=== PATIENT | male | born 1975 | race Caucasian/White ===

== ENCOUNTER 2025-01-07 13:09 | Emergency (ER) | payer OTHER, MEDICARE, SELFPAY ==
[2025-01-07 13:19] VITALS: BP 137/84
--- NOTE | 2025-01-07 13:27 | ED.GENMED ---
History of Present Illness
General
Chief Complaint: Crisis Evaluation
Time Seen by Provider: 01/07/25 13:27
History of Present Illness
History of Present Illness:
TIME OF INITIAL ENCOUNTER: 1:30 PM
HPI: The patient cannot clearly tell me why he is here. However, he states that he had an upsetting phone call with his mother and then go to [facility] somehow got involved. He states that somebody from [facility] brought him here. He has no suicidal thoughts. The patient perseverates on talking about psychedelics and admits to polysubstance use. He states he has social anxiety. He has been having rather severe depression and anxiety. He
denies any suicidal thoughts. He states that he has had several college courses and has an associates degree related to computer science. 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.
I also reviewed the 302 petition. He apparently missed his transitional outpatient program meeting today. There was concern of him taking excessive benzos yesterday. The patient did not initially tell me this. Regardless he denies any suicidal
thoughts or suicide attempts. He does have severe anxiety. [facility] petition for the 302.
EXAM:
GENERAL: Well appearing in no distress
HEENT: Moist oral mucosa, pupils are normal size appropriately reactive
PULMONARY: No respiratory distress
ABDOMEN: Elevated BMI
NEUROLOGIC: Excellent strength all extremities, no coordination deficits, at times the patient has some slurred speech
PSYCHIATRIC: Tangential thoughts, somewhat pressured speech at times, fair insight and judgment but cannot clearly tell me why he is here today
EXTREMITIES: Nontender, no edema, moves all extremities equally
SKIN: No rash, no lesions
NUMBER AND COMPLEXITY OF PROBLEMS ADDRESSED AT THE ENCOUNTER
� Chronic conditions affecting care: Anxiety/depression, questionable bipolar affective disorder, polysubstance use
� Acute Exacerbation and/or Progression of Chronic Illness: This is an acute problem
� Differential Diagnosis includes: Exacerbation of psychiatric illness, polysubstance abuse, severe anxiety/depression
AMOUNT AND/OR COMPLEXITY OF DATA TO BE REVIEWED AND ANALYZED
� I performed an independent evaluation of and my interpretation is:
EKG:
CT:
X-rays:
Laboratory Studies: CBC unremarkable, chemistries unremarkable, UDS positive for benzos only, alcohol detected
Other:
� Review of other/old records: I reviewed records. Only other visit here was when patient was diagnosed with a nasal contusion.
� Clinical information was obtained by an independent historian: I reviewed the 302
� Prescriptions/Medications Considered but not given:
� Further testing considered but not performed:
RISK OF COMPLICATIONS AND/OR MORBIDITY OR MORTALITY OF PATIENT MANAGEMENT
� Social determinants of health affecting care: As summarized above
� Discussion with other providers: 1:45 PM I spoke to Ani and asked for crisis evaluation
� Escalation of care including admission/observation vs risk of discharge considered:
ANY OTHER UPDATES:
3:20 PM: I spoke to Ani again. She tells me that the 302 petition was denied. The patient not appear to be any threat to himself or others. Ani gave referrals for other outpatient resources.
Past History
Past History
ED Past Medical History: None
ED Past Surgical History: None
Phy Exam
Physical Exam
Physical Exam:
See HPI
Course
Orders/Labs/Results
Orders:
Orders
01/07/25 13:45
Crisis Consult Urgent
Reason for Consult: behavioral health eval
01/07/25 14:05
Alcohol Urgent
Complete Blood Count/With Diff Urgent
Comprehensive Metabolic Panel Urgent
Fentanyl, Urine Urgent
Urine Drug Abuse Screen Urgent
Date Specimen was Collected: 01/07/25
Time Specimen was Collected: 13:59
Abnormal Lab Results
01/07/25
14:05
RBC 4.26 L 10^6/uL
(4.70-6.10)
Hgb 12.8 L g/dL
(13.0-18.0)
Hct 37.8 L %
(39.0-52.0)
BUN 21 H mg/dl
(9-20)
Glucose 110 H mg/dl
(70-99)
Alkaline Phosphatase 131 H U/L
(38-126)
U Benzodiazepines Scrn Positive H
(Negative)
01/07/25 14:05
01/07/25 14:05
Vital Signs
Initial and Last Documented VS:
Initial Vital Signs
Temp Pulse Resp BP Pulse Ox
36.8 C 77 18 137/84 96
01/07/25 13:19 01/07/25 13:19 01/07/25 13:19 01/07/25 13:19 01/07/25 13:19
Last Documented Vital Signs
Temp Pulse Resp BP Pulse Ox
36.8 C 77 18 137/84 96
01/07/25 13:19 01/07/25 13:19 01/07/25 13:19 01/07/25 13:19 01/07/25 13:19
*Critical Care Note
Total Time (30-74mins, 75-104mins- exclusive of procedures): Not Applicable
ED Attending Note
-
Portions of this chart may have been created with voice recognition software.� Occasional wrong word or��sound alike� substitutions may have occurred due to the inherent limitations of voice recognition software.
Discharge Plan
Departure
Patient Disposition: Home (Routine Discharge)
Date of Disposition: 01/07/25
Time of Disposition: 15:20
Patient with high blood pressure during this ER visit?: Yes
Discharge Problem:
Encounter for behavioral health screening
Instructions: BLOOD PRESSURE, Drug and Alcohol Abuse Information
Referrals:
NONE,* [Family Provider] -
Activity Restrictions/Additional Instructions:
Return here if worse. Follow-up as recommended by crisis.
Interventions
Interventions:
*Risk Screen - Suicide Last Done: 01/07/25 13:19
*General Assessment Last Done: 01/07/25 13:19
*Neglect/Abuse Screening Last Done: 01/07/25 13:19
Discharge Date and Time
Print Language: [id number]
[2025-01-07 14:15] LABS: % Basophils 0.6 % (0-2); % Eosinophils 1.5 % (0-6); % Immature Granulocytes 0.2 % (0-0.5); % Lymphocytes 34.9 % (20.5-51.1); % Monocytes 5.7 % (1.7-9.3); % Neutrophils 57.1 % (42.2-75.2); Absolute Eosinophils 0.1 10^3/uL (0-0.7); Absolute Lymphocytes 1.8 10^3/uL (1.2-3.4); Absolute Monocytes 0.3 10^3/uL (0.1-0.6); Hematocrit 37.8 % (39.0-52.0); Hemoglobin 12.8 g/dL (13.0-18.0); Mean Corp Hgb Conc. 33.9 g/dL (33.0-37.0); Mean Corpuscular Volume 88.7 fL (80.0-94.0); Mean Platelet Volume 9.6 fL (7.4-10.4); Nucleated Red Blood Cells % 0 % (-); Platelet Count 196 10^3/uL (130-400); Red Blood Cell Count 4.26 10^6/uL (4.70-6.10); Red Cell Dist. Width 12.9 % (11.5-14.5); White Blood Cell Count 5.3 10^3/uL (4.8-10.8)
[2025-01-07 14:44] LABS: ALT (SGPT) 15 U/L (0-50); AST (SGOT) 19 U/L (17-59); Albumin 4.1 g/dl (3.5-5.0); Alkaline Phosphatase 131 U/L (38-126); Blood Urea Nitrogen 21 mg/dl (9-20); Calcium 9.1 mg/dl (8.4-10.2); Carbon Dioxide 26 mmol/L (22-30); Chloride 105 mmol/L (98-107); Estimated Creatinine Clearance > 125 ml/min; Glucose 110 mg/dl (70-99); Potassium 4.3 mmol/L (3.5-5.1); Sodium 141 mmol/L (135-145); Total Bilirubin 0.4 mg/dl (0.2-1.3); Total Protein 6.4 g/dl (6.3-8.2); eGFR > 60.00
[2025-01-07 14:47] LABS: Alcohol None Detected
[2025-01-07 14:50] LABS: Amphetamines Negative (Negative); Barbiturates Negative (Negative); Benzodiazepines Positive (Negative); Buprenorphine Negative (Negative); Cocaine Negative (Negative); Marijuana Negative (Negative); Methadone Negative (Negative); Methamphetamines Negative (Negative); Opiates Negative (Negative); Phencyclidine Negative (Negative); Tricyclic Antidepressants Negative (Negative)
[2025-01-07 15:30] LABS: Fentanyl, Urine Negative (Negative)
[2025-01-07 15:46] VITALS: BP 137/78
== END 2025-01-07 16:14 | disposition home or self-care (01) ==
LOC: EMR 13:09
PROVIDERS: EMERGENCY PHYSICIAN Emergency Medicine
DX: F41.9 Anxiety disorder, unspecified (principal); F32.A Depression, unspecified
CPT/HCPCS: 99283; 80053; 80306; 80307; 82077; 85025